=== PATIENT | female | born 1985 | race Caucasian/White ===

== ENCOUNTER 2024-08-05 02:59 | Inpatient (IN) | payer BC ==
[~2024-08-05] VITALS: Ht 177.8 cm; Wt 139.5 kg
[2024-08-05] VITALS (49 sets, daily range): BP systolic 93–186; BP diastolic 48–108; PULSE 55–99; TEMP 97.6–98.1
[~2024-08-05 02:59] MED LIST: PRISTIQ25 MG PO; SINGULAIR 110 MG/TAB PO; TOPROL XL 25MG25 MG PO
--- NOTE | 2024-08-05 03:05 | NUR ---
Ambulatory to unit for labor aswsessment, accompanied by spouse. Oriented to room, monitor, plan of care. Pt reports "my water broke at 0140."
[2024-08-05] MEDS ORDERED: LR 1,000 ML IV SCH (04:15)
[2024-08-05] MEDS ORDERED: LR & Oxytocin 500 ML IV SCH ×2 (04:15)
[2024-08-05] MEDS ORDERED: ceFAZolin 2 G in Water For Injection,Sterile 20 ML IV SCH ×2 (05:00→11:00)
--- NOTE | 2024-08-05 05:00 | NUR ---
Pitocin gtt started per protocol after reviewing process with pt and spouse. Questions invited and answerred. Pt states "I am starting to feel some contractions" Difficult to monitor Uterine activity r/t pt's body habitus.
[2024-08-05 05:03] LABS: BASO % 0.3 % (0.0-2.0); EOS % 0.3 % (0.0-4.0); GRAN # 8.9 K/mm3 (1.4-6.5); GRAN % 73.8 % (42.2-75.2); HEMATOCRIT 37.7 % (37.0-47.0); HEMOGLOBIN 12.7 g/dl (12.5-16.0); LYMPH # 2.4 K/mm3 (1.2-3.4); LYMPH % 19.9 % (20.0-51.0); MEAN CELL VOLUME 86 fl (80.0-100.0); MEAN CORPUSCULAR HEMOGLOBIN 29 pg (27-31); MEAN CORPUSCULAR HGB CONC 34 g/dl (33.0-37.0); MEAN PLATELET VOLUME 10.1 fl (7.4-10.4); MONO # 0.6 K/mm3 (0.1-0.6); MONO % 5.2 % (1.7-9.3); PLATELET COUNT 294 K/mm3 (130-400); RED BLOOD COUNT 4.37 M/mm3 (4.10-5.30); REDCELL DISTRIBUTION WIDTH-CV 13.5 % (11.5-14.5)
--- NOTE | 2024-08-05 05:30 | NUR ---
Ctx difficult to m onitor r/t pt's body habitus. Pt questions "Could they be getting stronger already?
--- NOTE | 2024-08-05 05:50 | NUR ---
FHT's with baseline changes over last hour from 140's to 130's, possible acceleration to 140's - 150's, vs baseline 140's with decels to 130's
--- NOTE | 2024-08-05 06:10 | NUR ---
FHT's with ?baseline 130's with accelerations to 150's vs baseline 140's with decelerations. Pt reports "contractions getting stronger and more regular" , monitor not tracing ctx well r\\t pt's body habitus and positioning in bed for comfort. Pitocin gtt off at this time.
--- NOTE | 2024-08-05 06:46 | NUR ---
PATIENT REQUESTING TO WALK THE HALLS AND VOID. PATIENT ASSISTED TO THE RESTROOM AND VOIDS. PATIENT AMBULATES THE HALLS WITH SPOUSE.
[2024-08-05] MEDS ORDERED: ceFAZolin 2 G in Water For Injection,Sterile 20 ML IV ONE (07:00)
[2024-08-05] MEDS ORDERED: ePHEDrine 50 MG/10 ML VIAL IV PRN (07:15)
[2024-08-05] MEDS ORDERED: Ondansetron 4 MG/2 ML VIAL IV PRN (07:15)
[2024-08-05] MEDS ORDERED: diphenhydrAMINE 50 MG/ML 1 ML VIAL IV PRN (07:15)
[2024-08-05] MEDS ORDERED: diphenhydrAMINE 25 MG CAP PO PRN (07:15)
[2024-08-05] MEDS ORDERED: Naloxone 0.4 MG/ML VIAL IV PRN ×2 (07:15→16:30)
--- NOTE | 2024-08-05 07:25 | NUR ---
SVE , PATIENT REPOSTIONED TO [facility]. EFM AND TOCO ADJSUTED.
--- NOTE | 2024-08-05 08:50 | NUR ---
IN ROOM TO DISCUSS PLAN OF CARE WITH PATIENT. PATIENT VERBALIZES UNDERSTANDING.
[2024-08-05] MEDS ORDERED: Influenza Virus Vaccine, Trivalent '24-25 0.5 ML SYRINGE IM SCH (09:00)
--- NOTE | 2024-08-05 09:13 | NUR ---
THIS RN TO BEDSIDE TO ADJUST EFM, EFM ADJUSTED, FHR TRACING WELL.
[2024-08-05 09:51] LABS: TRICYCLIC ANTIDEPRESS URINE NEGATIVE (NEGATIVE)
--- NOTE | 2024-08-05 10:00 | NUR ---
THIS RN TO BEDSIDE, PATIENT REQUESTING STADOL. STADOL ADMINISTERED, SEE eMAR.
[2024-08-05] MEDS ORDERED: NIFEdipine XL 30 MG TAB PO ONE ×2 (11:15→17:00)
--- NOTE | 2024-08-05 11:27 | NUR ---
PATIENT ASSISTED BACK FROM BATHROOM, PATIENT SITTING UPRIGHT ON SIDE OF BED. THIS RN REMAINS AT BEDSIDE ADJSUTING EFM.
--- NOTE | 2024-08-05 11:37 | NUR ---
PATIENT ASSISTED WEDGED RIGHT IN BED TO OBTAIN FHR TRACING DUE TO MATERNAL HABITUS, EFM ADJUSTED AND FHR TRACING.
--- NOTE | 2024-08-05 11:58 | NUR ---
1140- ESPERANZA PEREZ IN PATIENTS ROOM FOR EPIDURAL PLACEMENT. PATIENT SITTING UP FOR EPIDURAL PLACEMENT. DIFFICULTY TRACING FHR DUE TO MATERNAL POSITION AND HABITUS. 1150- SINGLE SHOT ADMINISTERED BY ESPERANZA PEREZ. PATIENT TOLERATED WELL. 1158- PATIENT REPOSITIONED WEDGED RIGHT. EFM ADJUSTED AND FHR TRACING WELL.
[2024-08-05] MEDS ORDERED: ROPivacaine PF 0.2% 200 ML IV ONE (11:59)
--- NOTE | 2024-08-05 13:04 | NUR ---
1254- THIS RN AT [facility] ATTEMPTING TO REPOSITION PATIENT TO LEFT LATERAL WITH RIGHT LEG IN STIRUP. EFM ADJUSTED. DIFFICULTY TRACING FHR DUE TO MATERNAL POSITION AND HABITUS. 1304- PATIENT ASSISTED TO WEDGED RIGHT WITH A PEANUT BALL, EFM ADJUSTED AND TRACING.
--- NOTE | 2024-08-05 13:28 | NUR ---
1323- THIS RN TO BEDSIDE TO REPOSITION PATIENT IN RESPONSE TO LATE DECELERATIONS. PATIENT REPOSITIONED TO WEDGED LEFT WITH PEANUT BALL. THIS RN ADJUSTING EFM. 1328- FHR TRACING CONTINUES AFTER EFM ADJSUTED.
--- NOTE | 2024-08-05 13:50 | NUR ---
1334- DIFFICULTY TRACING FHR, THIS RN TO BEDSIDE TO ADJUST FHR. 1340- THIS RN REMAINS AT BEDSIDE CONTINUING TO ADJUST EFM. 1343- FHR TRACING RESUMES. 1350- FSE PLACED BY JAMI PRECIADO. SVE /-2, FSE BEGINS TRACING.
--- NOTE | 2024-08-05 14:02 | NUR ---
THIS RN AT BEDSIDE TO ADMINISTER EPINEPHRINE, SEE eMAR.
--- NOTE | 2024-08-05 14:07 | NUR ---
PATIENT REPOSITIONED TO WEDGED RIGHT WITH A PEANUT BALL.
--- NOTE | 2024-08-05 14:25 | NUR ---
PATIENT CALLS OUT REPORTING RECTAL PRESSURE, THIS RN TO BEDSIDE FOR SVE. SVE 10/100/0. PATIENT REPOSITIONED TO [facility] TO LABOR DOWN.
--- NOTE | 2024-08-05 14:45 | NUR ---
THIS RN AT BEDSIDE TO BEGIN PUSHING WITH PATIENT. PATIENT PUSHING WITH GOOD EFFORT.
--- NOTE | 2024-08-05 15:09 | NUR ---
THIS RN TO NURSES STATION TO NOTIFY WE ARE READY FOR DELIVERY. TO PATIENTS ROOM TO PREPARE FOR DELIVERY.
--- NOTE | 2024-08-05 15:16 | NUR ---
1511- IN PATIENTS ROOM FOR DELIVERY. FHR DECELERATES INTO THE 50s, ENCOURAGES PATIENT TO PUSH. 1513- SPONTANEOUS DELIVERY OF INFANT HEAD AND BODY. 1516- SPONTANEOUS DELIVERY OF PLACENTA. PITOCIN STARTED AT 333mU/HR ORDERED AND PER PROTOCOL.
[2024-08-05] MEDS ORDERED: Magnes Hydrox (MOM) 80 MG/ML 30 ML CUP PO PRN (15:45)
[2024-08-05] MEDS ORDERED: Loratadine 10 MG TAB PO PRN (15:45)
[2024-08-05] MEDS ORDERED: Phenylephrine/Mineral Oil/Petrolatum 57 GM TUBE RC PRN (16:30)
[2024-08-05] MEDS ORDERED: Acetaminophen 500 MG TAB PO SCH (16:30)
[2024-08-05] MEDS ORDERED: Tdap Vaccine 0.5 ML SYRINGE IM SCH (16:30)
[2024-08-05] MEDS ORDERED: Mag/Al Hydrox/Simeth Susp 30 ML CUP PO PRN (16:30)
[2024-08-05] MEDS ORDERED: oxyCODONE 5 MG TAB PO PRN (16:30)
[2024-08-05] MEDS ORDERED: Witch Hazel 50% Pads Bulk TUB TP PRN (16:30)
[2024-08-05] MEDS ORDERED: Measles/Mumps/Rubella Virus Vaccine Live w Diluent 0.5 ML VIAL SQ SCH (16:30)
[2024-08-05] MEDS ORDERED: Ibuprofen 800 MG TAB PO SCH (16:30)
[2024-08-05] MEDS ORDERED: Sennosides/Docusate 8.6-50 MG TAB PO SCH (17:00)
[2024-08-05] MEDS ORDERED: traZODone 50 MG TAB PO PRN (21:00)
[2024-08-06 01:00] VITALS: BP 142/100; PULSE 78; TEMP 97.9
[2024-08-06 08:10] VITALS: BP 140/83; PULSE 72; TEMP 97.6
[2024-08-06 11:38] VITALS: BP 142/98; PULSE 87
[2024-08-06 16:00] VITALS: BP 151/92; PULSE 74; TEMP 97.7
[2024-08-06 20:15] VITALS: BP 153/95; PULSE 73; TEMP 97.5
[2024-08-07 00:20] VITALS: BP 155/95; PULSE 73
[2024-08-07] MEDS ORDERED: NIFEdipine XL 30 MG TAB PO ONE (01:15)
[2024-08-07 04:15] VITALS: BP 158/92; PULSE 84
[2024-08-07 07:37] VITALS: BP 149/84; PULSE 83; TEMP 98
--- NOTE | 2024-08-07 09:43 | NUR ---
Initial visit attempt: Hearing Screening in Process, Director Furniture left card offering congratulations and God's blessings for the of their son and information regarding the availability of Spiritual Care at [facility].
--- NOTE | 2024-08-07 09:44 | NUR ---
Follow-up visit; Parents thanked for looking in on them checking on their son's progress whose progress is much better. Mercerizer offered God's blessings.
[2024-08-07] MEDS ORDERED: PROCARDIA XL 3030 MG PO (11:31)
[2024-08-07] MEDS ORDERED: NIFEdipine XL 30 MG TAB PO SCH (21:00)
== END 2024-08-07 12:15 | disposition home or self-care (01) | DRG 807 ==
LOC: LDRO 02:59 → LDR 04:00 → OB 04:00
PROVIDERS: Obstetrics & Gynecology; ADMIT Obstetrics & Gynecology
PROC: 10E0XZZ Delivery of Products of Conception, External Approach (ICD-10-PCS; principal; 2024-08-05)
PROC: 0KQM0ZZ Repair Perineum Muscle, Open Approach (ICD-10-PCS; 2024-08-05)
DX: O99.824 Streptococcus B carrier state complicating childbirth (principal); Z37.0 Single live birth; O99.214 Obesity complicating childbirth; O70.1 Second degree perineal laceration during delivery; Z3A.37 37 weeks gestation of pregnancy; O69.81X0 Labor and delivery complicated by cord around neck, without compression, not applicable or unspecified; O10.92 Unspecified pre-existing hypertension complicating childbirth
CPT/HCPCS: J0595; J0688; J1920; J2590; J2795; J7120